=== PATIENT | female | born 2000 | race Caucasian/White ===

== ENCOUNTER → 2019-11-03 | Outpatient (CLI) | payer OTHER ==
[~2019-11-03] MED LIST: PROHANCE 279.3MG/ML 15ML VIAL As Ordered ONE; PROHANCE 279.3MG/ML 5ML VIAL As Ordered ONE
--- NOTE | 2019-11-03 18:23 | REPVR ---
PROCEDURE INFORMATION: Exam: MR Head Without and With Contrast Exam date and time: 11/03/2019 5:23 PM Age: 19 years old Clinical indication: Pain; Headache; With aura; Does not respond to medication; With migrainosus (>72 hrs & severe); Patient HX: Chronic migraines, occasional loss of vision, nki, no priors TECHNIQUE: Imaging protocol: MR of the head without and with intravenous contrast. Contrast material: PROHANCE; Contrast volume: 19 ml; Contrast route: INTRAVENOUS (IV); COMPARISON: No relevant prior studies available. FINDINGS: Brain: No restricted diffusion to suggest acute infarction. No acute intracranial hemorrhage. No mass or demyelinating plaques. No abnormal contrast enhancement in the brain parenchyma or leptomeninges. Ventricles: Normal. No ventriculomegaly. Bones/joints: Unremarkable. Sinuses: No acute sinusitis. Mastoid air cells: The middle ear cavities and mastoid air cells are clear. Orbits: Unremarkable. Soft tissues: Unremarkable. IMPRESSION: Normal appearance of the brain. Electronically signed by: Destinee Rizvi On 11/03/2019 18:24:15 PM
== END ==
LOC: M RAD 16:52
PROVIDERS: ATTEND Registered Nurse
DX: G43.709 Chronic migraine without aura, not intractable, without status migrainosus (principal); E66.9 Obesity, unspecified; M54.2 Cervicalgia; H54.3 Unqualified visual loss, both eyes
CPT/HCPCS: 70553; A9576

== ENCOUNTER → 2019-12-10 | Outpatient (CLI) | payer OTHER ==
[2019-12-10 09:11] LABS: BASO % 0.3 % (0.0-1.0); EOS % 0.7 % (0.0-3.0); HEMATOCRIT 39.1 % (36.0-47.0); HEMOGLOBIN 12.5 g/dl (12.0-15.5); LYMPH # 2.2 10^3/uL (1.5-5.0); LYMPH % 36.6 % (24.0-44.0); MEAN CORPUSCULAR HEMOGLOBIN 27.5 pg (27.0-33.0); MEAN CORPUSCULAR VOLUME 86.1 fl (80.0-96.0); MONO # 0.4 10^3/uL (0.0-0.8); MONO % 7.2 % (0.0-5.0); NEUTROPHILS # 3.3 10^3/uL (1.5-8.5); NEUTROPHILS % 54.9 % (36.0-66.0); PLATELET COUNT, AUTOMATED 307 10^3/uL (150-450); RED BLOOD COUNT 4.54 10^6/uL (4.00-5.40); WHITE BLOOD COUNT 6.1 10^3/uL (4.0-10.0)
[2019-12-10 09:46] LABS: ALBUMIN 3.8 GM/DL (3.2-5.2); ALT/SGPT 26 U/L (12-78); BILIRUBIN,TOTAL 0.5 MG/DL (0.2-1.0); BLOOD UREA NITROGEN 14 MG/DL (7-18); CALCIUM LEVEL 9.2 MG/DL (8.5-10.1); CARBON DIOXIDE LEVEL 25 MEQ/L (21-32); CHLORIDE LEVEL 109 MEQ/L (98-107); CREATININE FOR GFR 0.89 MG/DL (0.55-1.30); FREE T4 1.39 NG/DL (0.76-1.46); GLOMERULAR FILTRATION RATE > 60.0 (>60); GLUCOSE, FASTING 96 MG/DL (70-100); IRON (FE) 123 UG/DL (50-170); POTASSIUM SERUM 4.2 MEQ/L (3.5-5.1); SODIUM LEVEL 141 MEQ/L (136-145); TOTAL IRON BINDING CAPACITY 384 UG/DL (250-450); TOTAL PROTEIN 6.9 GM/DL (6.4-8.2)
[2019-12-10 10:46] LABS: TOTAL 25(OH) VITAMIN D 29.5 NG/ML (30.0-100.0); VITAMIN B12 LEVEL 576 PG/ML
[2019-12-10 10:47] LABS: FOLATE 12.7 NG/ML
== END ==
LOC: M LAB 08:38
PROVIDERS: ATTEND Family Medicine
DX: R53.83 Other fatigue (principal)

== ENCOUNTER 2021-02-06 06:45 | Outpatient (RCR) | END 2021-02-06 15:00 | disposition home or self-care (01) | LOC: M EMP 06:45 | PROVIDERS: ATTEND Pediatrics | DX: Z11.52 Encounter for screening for COVID-19 (principal) ==

== ENCOUNTER 2021-10-15 19:38 | Emergency (ER) | payer BC, OTHER ==
[~2021-10-15] VITALS: Ht 165.1 cm; Wt 104.7 kg
[2021-10-15 19:41] VITALS: BP 113/70
[2021-10-15 21:01] LABS: RSV AMPLIFICATION NEGATIVE (NEGATIVE)
[2021-10-15] MEDS ORDERED: CEPH500C PO (22:23)
[2021-10-15] MEDS ORDERED: CEPHALEXIN 500 MG CAP PO ONE (22:25)
== END 2021-10-15 22:47 | disposition home or self-care (01) ==
LOC: M ED 19:38
DX: J02.9 Acute pharyngitis, unspecified (principal); J03.90 Acute tonsillitis, unspecified; K21.9 Gastro-esophageal reflux disease without esophagitis; Z88.0 Allergy status to penicillin

== ENCOUNTER → 2022-05-30 | Outpatient (CLI) | payer BC ==
[~2022-05-30] MED LIST changes: +CEPH500C PO; -PROHANCE 279.3MG/ML 15ML VIAL As Ordered ONE; -PROHANCE 279.3MG/ML 5ML VIAL As Ordered ONE
== END ==
LOC: M RAD 06:21
PROVIDERS: ATTEND Nurse Practitioner Family
DX: E04.1 Nontoxic single thyroid nodule (principal)